=== PATIENT | female | born 1975 | race African-American/Black ===

== ENCOUNTER 2017-01-17 08:14 | Emergency (ER) | payer BC ==
[~2017-01-17] VITALS: Ht 167.6 cm; Wt 110.0 kg
[~2017-01-17 08:14] MED LIST: BENADRYL25 MG PO; EPINEPHRIN0.15 MG/0. IM
[2017-01-17] MEDS ORDERED: FLEXERIL10 MG PO (11:24)
[2017-01-17] MEDS ORDERED: NAPROXEN500 MG PO (11:24)
[2017-01-17 11:40] VITALS: BP 115/78
== END 2017-01-17 11:40 | disposition home or self-care (01) ==
LOC: EME 08:14
DX: M43.6 Torticollis (principal)
CPT/HCPCS: 72040; 99281; 99285; J1885